=== PATIENT | male | born 1965 | race Caucasian/White ===

== ENCOUNTER 2024-05-31 06:36 | Emergency (ER) | payer OTHER ==
[~2024-05-31] VITALS: Ht 175.3 cm; Wt 83.7 kg
[2024-05-31] MEDS ORDERED: Ketorolac 30 MG/ML VIAL IM ONE (07:15)
[2024-05-31 07:47] VITALS: BP 141/81
== END 2024-05-31 07:56 | disposition home or self-care (01) ==
LOC: ED 06:36
DX: S49.91XA Unspecified injury of right shoulder and upper arm, initial encounter (principal); V00.131A Fall from skateboard, initial encounter; Y93.21 Activity, ice skating
CPT/HCPCS: J1885